=== PATIENT | male | born 1950 | race Caucasian/White ===

== ENCOUNTER → 2018-02-07 | Outpatient (CLI) | payer MEDICARE ==
[~2018-02-07] MED LIST: ASPIRIN PO; AVODART0.5 MG PO; DOXAZOSIN MESYLA4 MG PO; HYDROCHLOROTH12.5 MG PO; SIMVASTATIN40 MG PO; TESTIM5 GM TOP; VITAMIN B12 PO; VITAMIN D3 PO; ZYRTEC10 M1 PO
--- NOTE | 2018-02-07 18:09 | Diagnostic Imaging Report ---
EXAM: ABDOMEN-1VIEW (KUB), DATE: 02/07/2018 4:56 PM INDICATION: Calculus, blood in urine. Lower back pain. COMPARISON: None FINDINGS: LINES/TUBES: None BOWEL PATTERN: No evidence for obstruction. SOFT TISSUES: No calcifications project over the renal silhouettes. A 5 mm calcification projecting over the left pelvis likely represents a phlebolith. No mass effect. LUNG BASES: Grossly clear within the visualized portions. BONES: No acute findings. IMPRESSION: No calcifications project over the renal silhouettes. If hematuria persists, consider further evaluation with CT urography. Signed by: DR. Damir Veliz MD on 02/07/2018 6:05 PM
== END ==
LOC: RAD 16:46
PROVIDERS: ATTEND Urology
DX: N20.0 Calculus of kidney (principal)
CPT/HCPCS: 74018

== ENCOUNTER → 2018-05-11 | Outpatient (CLI) | payer MEDICARE ==
[~2018-05-11] MED LIST changes: +IOPAMIDOL 370 MG/ML 200 ML INFUS..BTL INJ ONE; +SODIUM CHLORIDE 0.9% 250ML 250 ML ONE
[2018-05-11 15:08] LABS: BLOOD UREA NITROGEN 13 mg/dL (7-26); BUN/CREATININE RATIO 12 (6-25); CREATININE, SERUM 1.06 mg/dL (0.72-1.25); EST GLOMERULAR FILTRATION RATE > 60 ML/MIN (60-)
== END ==
LOC: CT 14:18
PROVIDERS: ATTEND Urology
DX: N31.0 Uninhibited neuropathic bladder, not elsewhere classified (principal)
CPT/HCPCS: 36415; 74178; 82565; 84520; J7050; Q9967